=== PATIENT | female | born 1975 | race Asian ===

== ENCOUNTER 2018-09-26 05:13 | Inpatient (IN) | payer BC ==
--- NOTE | 2018-09-23 16:03 | NUR ---
[facility]:PEND F:[phone] REF#[id number]
[2018-09-26] VITALS (18 sets, daily range): BP systolic 116–161; BP diastolic 44–88
[~2018-09-26] VITALS: Ht 149.9 cm; Wt 41.8 kg
[2018-09-26] MEDS ORDERED: NKM (06:02)
[2018-09-26] MEDS ORDERED: Zemuron 50mg/5ml Inj IV ONE (06:40)
[2018-09-26] MEDS ORDERED: LR 1000ml 1,000 ML IVLG SCH (06:46)
[2018-09-26] MEDS ORDERED: Dexamethasone 4mg/ml vial ONE (06:49)
[2018-09-26] MEDS ORDERED: Lidocaine 1% MPF 10mg/ml 5ml ONE (06:49)
[2018-09-26] MEDS ORDERED: Sodium Chloride 10ml vial INJ ONE (06:49)
--- NOTE | 2018-09-26 06:49 | Anethesia Preoperative Eval ---
Anesthesia Pre-op PMH/ROS General Date of Evaluation: Sep 26, 2018 Anesthesiologist: Kathy ASA Score: ASA 1 Mallampati Score Class I : Soft palate, uvula, fauces, pillars visible Class II: Soft palate, uvula, fauces visible Class III: Soft palate, base of uvula visible Class IV: Only hard plate visible Mallampati Classification: Class I Surgeon: Jorge Diagnosis: Abd Pain Surgical Procedure: Abdominal Myomectomy Anesthesia History: none Family History: no anesthesia problems Allergies: Coded Allergies: No Known Allergies (Unverified , 09/23/18) Medications: see eMAR Patient NPO?: Yes NPO Date: Sep 25, 2018 NPO Time: 2029 Past Medical History Hematology/Immune: Reports: anemia PSxH Narrative: Uterine Ablation Anesthesia Pre-op Phys. Exam Physician Exam Last Vital Signs Date Time Temp Pulse Resp B/P (MAP) Pulse Ox O2 Delivery O2 Flow Rate FiO2 09/26/18 06:09 98.5 66 20 116/66 (83) 100 09/26/18 05:55 Room Air Constitutional: NAD Neurologic: CN 2-12 intact Cardiovascular: RRR Respiratory: CTA Gastrointestinal: S/NT/ND Airway Exam Mallampati Score: Class I MO: full ROM: full Teeth: intact Anesthesia Pre-op A/P Labs Urine Test Test 09/26/18 05:40 Urine HCG, Qualitative Negative (NEGATIVE) Risk Assessment & Plan Assessment: ASA 1 Plan: GA, SED, GlideScope Go Status Change Before Surgery: No Pre-Antibiotics Dru Gram Ancef IV Given Within 1 Hr of Incision: Yes Time Given: 07:46 Andre Chavez MD Sep 26, 2018 06:49
[2018-09-26] MEDS ORDERED: Ketamine 500mg Inj ONE (06:50)
[2018-09-26] MEDS ORDERED: Lidocaine 1% Plain 30 ml INJ ONE (06:57)
[2018-09-26] MEDS ORDERED: Ketorolac 30mg Inj IV PRN ×2 (07:00)
[2018-09-26] MEDS ORDERED: LORazepam Inj 2mg/ml 1ml IV PRN (07:00)
[2018-09-26] MEDS ORDERED: Norco 5mg/325mg tab ORAL PRN (07:00)
[2018-09-26] MEDS ORDERED: DiphenhydrAMINE 50mg/ml Inj IVP PRN (07:00)
[2018-09-26] MEDS ORDERED: Midazolam 2mg/2ml Inj IVP PRN (07:00)
[2018-09-26] MEDS ORDERED: HYDROcodone/Acetamin 7.5/325 tab ORAL PRN (07:00)
[2018-09-26] MEDS ORDERED: Atropine Sulfate 0.4mg/ml inj IVP PRN (07:00)
[2018-09-26] MEDS ORDERED: Acetaminophen (Non formulary) 100 ML IV ONE (07:00)
[2018-09-26] MEDS ORDERED: fentaNYL 100 mcg/2 mL IV PRN (07:00)
[2018-09-26] MEDS ORDERED: Hydromorphone 0.5mg/0.5ml inj IVP PRN (07:00)
[2018-09-26] MEDS ORDERED: oxyCODONE HCL/Acetaminophen 5/325mg ORAL PRN (07:00)
[2018-09-26] MEDS ORDERED: Metoclopramide 10mg/2ml Inj IVP PRN (07:00)
[2018-09-26] MEDS ORDERED: Meperidine 50mg/ml Inj(FOR RIGORS ONLY) IVP PRN (07:00)
[2018-09-26] MEDS ORDERED: Kenalog-40 1ml Vial ONE (07:21)
[2018-09-26] MEDS ORDERED: Bupivacaine w/Epi 0.25% 30ml Vial INJ ONE (07:21)
[2018-09-26] MEDS ORDERED: Propofol 1,000mg/ 100ml btl IV ONE (07:30)
[2018-09-26] MEDS ORDERED: Neostigmine 1mg/ml 10ml Inj ONE (07:30)
[2018-09-26] MEDS ORDERED: NS Irrig 1000ml ONE (07:30)
[2018-09-26] MEDS ORDERED: LR 1000ml ONE (07:30)
[2018-09-26] MEDS ORDERED: Sterile Water Irrig 1000ml IRRIG ONE (07:30)
--- NOTE | 2018-09-26 07:46 | Pre-Procedure Note/Attestation ---
Pre-Procedure Note/Attestation Complete Prior to Procedure Planned Procedure: not applicable Procedure Narrative: myomectomy, lysis of adhesions Indications for Procedure Pre-Operative Diagnosis: symptomatic myomata, pelvic adhesions Attestation I attest that I discussed the nature of the procedure; its benefits; risks and complications; and alternatives (and the risks and benefits of such alternatives ), prior to the procedure, with the patient (or the patient's legal retail representative). I attest that, if there was a reasonable possibility of needing a blood transfusion, the patient (or the patient's legal retail representative) was given the [facility] standardized written summary, pursuant to the Dru Elena Blood Safety Act ([place] Health and Safety Code # 1645, as amended). I attest that I re-evaluated the patient just prior to the surgery and that there has been no change in the patient's H&P, except as documented below: Bebo Patel MD Sep 26, 2018 07:46
--- NOTE | 2018-09-26 08:15 | Immediate Post-Op Evaluation ---
Immediate Post-Op Evalulation Immediate Post-Op Evalulation Procedure: Abdominal Myomectomy Date of Evaluation: Sep 26, 2018 Time of Evaluation: 09:33 IV Fluids: 700 LR Blood Products: 0 Estimated Blood Loss: 50 Urinary Output: 400 Blood Pressure Systolic: 126 Blood Pressure Diastolic: 44 Pulse Rate: 55 Respiratory Rate: 16 O2 Sat by Pulse Oximetry: 100 Temperature (Fahrenheit): 97.2 Pain Score (1-10): 2 Nausea: No Vomiting: No Complications 0 Patient Status: awake, reacts, patent, extubated, none Hydration Status: adequate Dru Gram Ancef IV Given Within 1 Hr of Incision: Yes Time Given: 07:46 Andre Chavez MD Sep 26, 2018 08:15
[2018-09-26] MEDS ORDERED: Interceed TOPIC ONE (08:52)
[2018-09-26] MEDS ORDERED: Glycopyrrolate 0.2mg/ml 1ml Vial ONE (08:55)
--- NOTE | 2018-09-26 08:59 | Brief Operative Note ---
Immediate Post Operative Note Operative Note Pre-op Diagnosis: fibroids leiomyoma of the uterus Procedure: 1. lysis of adhesions; adhesiolysis 2. repair of small bowel serosa Post-op Diagnosis: same as pre-op Surgeon: yumiko malloy Additional Surgeons: rebeca Anesthesiologist: cliff Anesthesia: general Specimen: none Complications: none Condition: stable Fluids: see records Estimated Blood Loss: minimal Drains: none Implant(s) used?: No Pepe Sanz Sep 26, 2018 08:59
--- NOTE | 2018-09-26 09:29 | Brief Operative Note ---
Immediate Post Operative Note Operative Note Pre-op Diagnosis: symptomatic myomata, pelvic adhesions Procedure: myomectomy, lysis Post-op Diagnosis: adenomyoma, adhesions Surgeon: gama Emblem Cutter: rebeca Additional Surgeons: shan Anesthesiologist: cliff Anesthesia: general Specimen: yes Complications: none Condition: stable Fluids: 2 liters crystalloid Estimated Blood Loss: minimal Drains: none Implant(s) used?: No Bebo Patel MD Sep 26, 2018 09:29
[2018-09-26] MEDS ORDERED: ceFAZolin sod 2 GM in D5W 110 ML IVPB ONE (10:00)
--- NOTE | 2018-09-26 10:50 | NUR ---
NURSE NOTES: RN received pt from [employer] Candie Giraldo, currently asleep with no complaints or s/s of pain, SOB, or n/v. On 3L NC, saturating at 100%, dressing dry and intact on lower abdomen (steri-strips and coverlet). Belongings with patient upon transfer, signed by receiving and transferring RN. Robledo catheter empty, will continue to monitor. Bed in lowest position, call light and belongings within reach.
[2018-09-26] MEDS ORDERED: Morphine Sulfate 4mg/ml Inj (IV/IM USE ONLY) IVP PRN ×2 (13:00)
[2018-09-26] MEDS: D5 1/2NS w/KCl 20mEq 1,000 ML IV SCH ×2 (13:55→23:37)
--- NOTE | 2018-09-26 15:54 | NUR ---
CASE MANAGEMENT: REVIEW 42/F DIRECT ADMIT FROM HOME CC: FIBROIDS SI: SYMPTOMATIC MYOMATA, PELVIC ADHESIONS ABDOMINAL MYOMECTOMY 09/26 T 98.1 HR 58 RR 14 BP 126/44 SAT 100% SIMPLE MASK FIO2 6 UA: HCG NEG IS: ZEMURON IV X1 MAG SULFATE IV X1 LACTATED RINGER'S IV X1 ANCEF IV X1 VASOPRESSIN IV X1 INTERQUAL CRITERIA MET: PATIENT ADMITTED TO MED/SURG UNIT 09/26/2017 DCP: PATIENT IS FROM HOME
[2018-09-26] MEDS: Docusate 100mg cap ORAL SCH (17:53)
[2018-09-26] MEDS: ceFAZolin 2gm/50ml Premix 50 ML IV SCH ×2 (17:54→23:37)
--- NOTE | 2018-09-26 19:54 | NUR ---
HAND-OFF: Report given to LUIS Stein.
--- NOTE | 2018-09-26 19:55 | NUR ---
NURSE NOTES: Patient in bed awake and oriented. VSS. Robledo catheter draining. Dressing slightly stained. Surgical pain 11/27. IV site intact and dry. Needs attended. Call light within reach. In stable condition.
[2018-09-27] VITALS: BP 123/72
--- NOTE | 2018-09-27 | Operative Note - Dictated ---
DATE OF OPERATION: 09/26/2018 SURGEON: Bebo Arechiga M.D. DIRECTOR PERIOPERATIVE SURGEON: Robert Redd M.D. PERFORATOR TYPIST: Pepe Sanz M.D. PREOPERATIVE DIAGNOSES: Symptomatic leiomyoma of the uterus and pelvic adhesions. POSTOPERATIVE DIAGNOSES: Adenomyoma of uterus and pelvic adhesions. ANESTHESIOLOGIST: Andre Chavez M.D. (general endotracheal). INDICATIONS AND FINDINGS: A 42-year-old female with imaging prior to surgery, suggestive of a leiomyoma of the uterus. The patient had undergone a successful uterine artery embolization in the past. At the time of her procedure, both ovaries and fallopian tubes were grossly normal. The pouch of Poncho could not be visualized because of organized bowel adhesions. These adhesions were lysed for possible by Dr. Sanz. It will be dictated as a separate note by him. The large adenomyoma was excised and the tissue was sent for frozen section, which confirmed adenomyoma. DESCRIPTION OF PROCEDURE: Under general anesthesia, the patient was prepped and draped and placed in the dorsal position. The abdomen was entered through a Pfannenstiel incision. We immediately encountered bowel adhesions as it has been seen on prior laparoscopy and Dr. Sanz performed lysis of adhesions as described in the operative note. Next, the resection of the intramural leiomyoma. The patient's adenomyoma was encountered as was revealed on frozen section. The serosa was injected with dilute Pitressin (20 units in 50 mL of saline) was excised. The adenoma myoma was encountered and morcellated. Significant amount of tissue was removed. The uterus was then inspected and the patient will require a section when she becomes . The uterus was then closed in 3 layers using interrupted sutures of 1 chromic. Interceed barrier was placed over the suture line. The abdomen was copiously irrigated. No bleeding points were seen. The patient was anemic prior to surgery and will be given intravenous iron. The patient's abdominal incision was then closed with a running suture. Fascia was closed with running and locking #1 Vicryl. Subcutaneous tissue closed with 3-0 plain and the patient's skin was closed with skin clips and Steri-Strips. The patient tolerated the procedure and left the operating room in stable condition. Bebo Tcao Arechiga DR: HIPOLITO JOB#: [id number] CC: SARAH
[2018-09-27] MEDS: Morphine Sulfate 4mg/ml Inj (IV/IM USE ONLY) IVP PRN ×5 (00:29→19:46)
[2018-09-27 04:00] VITALS: BP 119/74
--- NOTE | 2018-09-27 07:22 | 48 Hour Post Anesthesia Eval ---
Post Anesthesia Evaluation Procedure: Abdominal Myomectomy Date of Evaluation: Sep 27, 2018 Time of Evaluation: 07:20 Blood Pressure Systolic: 119 0: 74 Pulse Rate: 81 Respiratory Rate: 19 Temperature (Fahrenheit): 97.2 O2 Sat by Pulse Oximetry: 99 Airway: patent Nausea: No Vomiting: No Pain Intensity: 2 Hydration Status: adequate Cardiopulmonary Status: Stable Mental Status/LOC: patient returned to baseline Follow-up Care/Observations: 0 Post-Anesthesia Complications: 0 Follow-up care needed: N/A Andre Chavez MD Sep 27, 2018 07:22
[2018-09-27 07:29] LABS: HEMATOCRIT 22.6 % (37.0-47.0); MEAN CORPUSCULAR VOLUME 64 FL (80-99); PLATELET COUNT 408 K/UL (150-450); RED BLOOD COUNT 3.53 M/UL (4.20-5.40); RED CELL DISTRIBUTION WIDTH 17.6 % (11.6-14.8); WHITE BLOOD COUNT 9.6 K/UL (4.8-10.8)
[2018-09-27 07:32] LABS: HEMOGLOBIN 6.7 G/DL (12.0-16.0)
[2018-09-27 07:51] LABS: ALANINE AMINOTRANSFERASE 16 U/L (12-78); ALBUMIN 2.7 G/DL (3.4-5.0); ALBUMIN/GLOBULIN RATIO 0.7 (1.0-2.7); ALKALINE PHOSPHATASE 58 U/L (46-116); ANION GAP 7 mmol/L (5-15); ASPARTATE AMINO TRANSFERASE 19 U/L (15-37); BILIRUBIN,TOTAL 0.3 MG/DL (0.2-1.0); BLOOD UREA NITROGEN 5 mg/dL (7-18); CALCIUM 7.7 MG/DL (8.5-10.1); CARBON DIOXIDE 26 MMOL/L (21-32); CHLORIDE 105 MMOL/L (98-107); CREATININE 0.6 MG/DL (0.55-1.30); POTASSIUM 3.6 MMOL/L (3.5-5.1); SODIUM 138 MMOL/L (136-145)
[2018-09-27 08:00] VITALS: BP 140/105
--- NOTE | 2018-09-27 08:00 | NUR ---
NURSE NOTES: RN notified Dr. Patel of Hgb of 6.7, doctor ordered 2 units of PRBCs to be administered.
--- NOTE | 2018-09-27 08:17 | NUR ---
NURSE NOTES: NURSE NOTES: Received patient from Emil SMITH, patient is resting bed comfortable, bed is locked and in lowest position, will continue to monitor.
--- NOTE | 2018-09-27 08:30 | NUR ---
NURSE NOTES: RN discussed blood transfusion with patient and patient is refusing ordered blood, RN made MD aware and MD ordered retest of CBC.
[2018-09-27] MEDS: Docusate 100mg cap ORAL SCH ×2 (08:46→17:36)
--- NOTE | 2018-09-27 10:00 | NUR ---
NURSE NOTES: MD made aware of retest CBC and patient continuing to refuse blood transfusion, MD ordered venofer daily for 5 days, no distress noted, will continue to monitor.
[2018-09-27] MEDS: D5 1/2NS w/KCl 20mEq 1,000 ML IV SCH ×2 (10:04→12:20)
[2018-09-27 10:34] LABS: HEMATOCRIT 22.6 % (37.0-47.0); MEAN CORPUSCULAR VOLUME 64 FL (80-99); PLATELET COUNT 408 K/UL (150-450); RED BLOOD COUNT 3.51 M/UL (4.20-5.40); RED CELL DISTRIBUTION WIDTH 17.7 % (11.6-14.8); WHITE BLOOD COUNT 9.1 K/UL (4.8-10.8)
[2018-09-27 10:41] LABS: HEMOGLOBIN 6.8 G/DL (12.0-16.0)
--- NOTE | 2018-09-27 11:52 | Consultation ---
Consult Note Assessment/Plan Internal Med notes dict Chele Tijerina MD Sep 27, 2018 11:52
[2018-09-27 12:00] VITALS: BP 128/68
--- NOTE | 2018-09-27 13:10 | General Surgery Progress Note ---
General Surgery-Progress Note Subjective Day of Surgery: september 26 Procedure Performed myomectomy, lysis Symptoms: improved, tolerating diet, voiding well Objective Last 24 Hour Vital Signs Date Time Temp Pulse Resp B/P (MAP) Pulse Ox O2 Delivery O2 Flow Rate FiO2 09/27/18 12:00 98.3 80 18 128/68 (88) 98 09/27/18 10:00 97.9 09/27/18 08:00 Room Air 09/27/18 08:00 97.9 72 19 140/105 (117) 100 09/27/18 07:22 81 19 99 09/27/18 04:00 97.2 81 19 119/74 (89) 99 09/27/18 00:00 98.1 84 18 123/72 (89) 98 09/26/18 21:00 Room Air 09/26/18 20:00 98.4 71 18 139/76 (97) 98 09/26/18 16:00 98.2 68 20 134/78 (96) 100 09/26/18 13:35 98.1 73 20 138/80 (99) 100 I&O Intake and Output 09/26/18 09/27/18 19:00 07:00 Intake Total 1620 ml 1400 ml Output Total 450 ml 1200 ml Balance 1170 ml 200 ml Intake Oral 220 ml 300 ml IV Total 1400 ml 1100 ml Output Urine Total 400 ml 1200 ml Estimated Blood Loss 50 ml Dressing: dry Wound: clean Drains: none Cardiovascular: RSR Respiratory: clear Abdomen: soft, flat, scaphoid, tenderness, present bowel sounds Laboratory Tests Test 09/26/18 20:15 09/27/18 06:45 09/27/18 10:27 Thyroid Stimulating Hormone (TSH) 0.420 uiU/mL (0.358-3.740) Free Thyroxine 1.05 NG/DL (0.76-1.46) White Blood Count 9.6 K/UL (4.8-10.8) 9.1 K/UL (4.8-10.8) Red Blood Count 3.53 M/UL (4.20-5.40) L 3.51 M/UL (4.20-5.40) L Hemoglobin 6.7 G/DL (12.0-16.0) *L 6.8 G/DL (12.0-16.0) *L Hematocrit 22.6 % (37.0-47.0) L 22.6 % (37.0-47.0) L Mean Corpuscular Volume 64 FL (80-99) L 64 FL (80-99) L Mean Corpuscular Hemoglobin 19.1 PG (27.0-31.0) L 19.3 PG (27.0-31.0) L Mean Corpuscular Hemoglobin Concent 29.9 G/DL (32.0-36.0) L 30.1 G/DL (32.0-36.0) L Red Cell Distribution Width 17.6 % (11.6-14.8) H 17.7 % (11.6-14.8) H Platelet Count 408 K/UL (150-450) 408 K/UL (150-450) Mean Platelet Volume 5.1 FL (6.5-10.1) L 5.8 FL (6.5-10.1) L Neutrophils (%) (Auto) % (45.0-75.0) % (45.0-75.0) Lymphocytes (%) (Auto) % (20.0-45.0) % (20.0-45.0) Monocytes (%) (Auto) % (1.0-10.0) % (1.0-10.0) Eosinophils (%) (Auto) % (0.0-3.0) % (0.0-3.0) Basophils (%) (Auto) % (0.0-2.0) % (0.0-2.0) Differential Total Cells Counted 100 100 Neutrophils % (Manual) 75 % (45-75) 79 % (45-75) H Lymphocytes % (Manual) 18 % (20-45) L 16 % (20-45) L Monocytes % (Manual) 7 % (1-10) 5 % (1-10) Eosinophils % (Manual) 0 % (0-3) 0 % (0-3) Basophils % (Manual) 0 % (0-2) 0 % (0-2) Band Neutrophils 0 % (0-8) 0 % (0-8) Platelet Estimate Adequate Adequate Platelet Morphology Normal Normal Hypochromasia 4+ 4+ Anisocytosis 1+ 1+ Microcytosis 4+ 4+ Sodium Level 138 MMOL/L (136-145) Potassium Level 3.6 MMOL/L (3.5-5.1) Chloride Level 105 MMOL/L (98-107) Carbon Dioxide Level 26 MMOL/L (21-32) Anion Gap 7 mmol/L (5-15) Blood Urea Nitrogen 5 mg/dL (7-18) L Creatinine 0.6 MG/DL (0.55-1.30) Estimat Glomerular Filtration Rate > 60 mL/min (>60) Glucose Level 113 MG/DL (74-106) H Calcium Level 7.7 MG/DL (8.5-10.1) L Total Bilirubin 0.3 MG/DL (0.2-1.0) Aspartate Amino Transf (AST/SGOT) 19 U/L (15-37) Alanine Aminotransferase (ALT/SGPT) 16 U/L (12-78) Alkaline Phosphatase 58 U/L (46-116) Total Protein 6.8 G/DL (6.4-8.2) Albumin 2.7 G/DL (3.4-5.0) L Globulin 4.1 g/dL Albumin/Globulin Ratio 0.7 (1.0-2.7) L Additional Comments patient refused transfusion, risks discussed at length Assessment Post-op Diagnosis adenomyoma, adhesions Additional Comments iv iron, ambulate Bebo Patel MD Sep 27, 2018 13:10
[2018-09-27] MEDS ORDERED: Iron Sucrose 100 MG in NS 55 ML IV SCH (14:00)
--- NOTE | 2018-09-27 14:00 | NUR ---
PT EVALUATION NOTE: Patient seen for initial evaluation, see complete evaluation for details. Patient will benefit from skilled inpatient PT intervention to address strength, balance, safety awareness and functional mobility. Recommend home at MD. No DME needs anticipated. Addendum: 09/27/18 at 1543 by THOMAS MADRIGAL PT Amended: Links added.
--- NOTE | 2018-09-27 15:22 | NUR ---
NURSE NOTES: RN notified Dr. Patel that patient had blood clots in her blood, doctor noted that the blood was from the uterus and no blood previously seen when lee was in, will continue to monitor and no new orders at this time.
--- NOTE | 2018-09-27 15:45 | Consultation ---
DATE OF CONSULTATION: 09/27/2018 CHIEF COMPLAINT: Request for postoperative management. HISTORY OF PRESENT ILLNESS: The patient is 42-year-old woman who came to the hospital for myomectomy, which was performed yesterday. She has had symptomatic fibroids of the uterus and pelvic adhesions for a long time and reports heavy menstrual bleeding. She had a previous uterine artery embolization. She underwent resection of adenomyoma yesterday and following surgery has been anemic. She has refused blood transfusion despite advice that this increases her risk of postoperative complications. PAST MEDICAL HISTORY: Leiomyoma uteri, anemia. ALLERGIES: None. MEDICATIONS: None. REVIEW OF SYSTEMS: She reports that she might have a thyroid problem in the past. She also reports occasional dyspnea with exertion. SOCIAL HISTORY: She does not drink or smoke and does not use illicit drugs. She works in a [employer]. PHYSICAL EXAMINATION: VITAL SIGNS: Blood pressure is somewhat elevated at times. GENERAL: She is a thin woman who appears to be her stated age. HEENT: Head is normocephalic. NECK: No jugular venous distention. The thyroid is not enlarged. CHEST: Clear. CARDIAC: Rhythm is regular. ABDOMEN: Soft with surgical tenderness. EXTREMITIES: No clubbing, cyanosis, or edema. LABORATORY AND DIAGNOSTIC DATA: Laboratory studies showed hemoglobin is 6.8, hematocrit 22, white count 9100, and platelets are normal. The red cells are microcytic. Chemistry shows normal electrolytes. Blood sugar slightly elevated at 113. Calcium low at 7.7, albumin low at 2.7. Urine is negative for HCG. Thyroid studies are normal. IMPRESSIONS: 1. Postoperative myomectomy. 2. Anemia, likely due to excessive blood loss from heavy menses and from surgery. 3. Mild malnutrition. PLAN: The patient will be given intravenous iron. We will continue with pain management and postoperative care. She will be discharged home if her condition permits. Chele Tijerina M.D. DR: Carlos JOB#: [id number] CC: Chele Tijerina M.D.; Fax#: [phone] GOPI PARKER M.D. ; FAX#: [phone] [facility]
[2018-09-27 16:00] VITALS: BP 136/75
--- NOTE | 2018-09-27 16:00 | Operative Note - Dictated ---
DATE OF OPERATION: 09/26/2018 PREOPERATIVE DIAGNOSES: 1. Fibroid/leiomyoma of the uterus. 2. Significant bowel adhesions. POSTOPERATIVE DIAGNOSES: 1. Fibroid/leiomyoma of the uterus. 2. Significant bowel adhesions. OPERATION PERFORMED: 1. Lysis of adhesions/adhesiolysis. 2. Repair of small bowel serosal tear. ATTENDING SURGEON: Pepe Sanz M.D. ADDITIONAL SURGEONS: Bebo Patel M.D. with assisting surgeon, Dr. Redd. ANESTHESIOLOGIST: Dr. Andre Chavez. 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 ESTIMATED BLOOD LOSS: Minimal. IV FLUIDS: Please see anesthesia records. COMPLICATIONS: None. DRAINS: None. SPECIMENS: Please refer to Dr. Patel' note. IMPLANTS: None. INDICATIONS FOR PROCEDURE: This is a 42-year-old female scheduled for surgery with Dr. Bebo Paetl for fibroids and leiomyoma of the uterus requiring a biopsy and potential resection. During operation, the patient was noted to have significant adhesions of small bowel to the uterus and fibroid requiring adhesiolysis/lysis adhesions. Dr. Sanz from General Surgery was called to assist with the procedure and the adhesiolysis portion so that the MEAT LUGGER portion could be completed in full. OPERATIVE NOTE: Please refer to Dr. Bebo Patel' operative report for the beginning of the procedure. Once they had entered the abdomen, there were Pfannenstiel incision. The fibroid/leiomyoma/uterus were identified. There were significant small bowel adhesions to the fibroid and the fibroid/leiomyoma/uterus requiring adhesiolysis for proper evaluation and biopsy. At this portion of procedure, using blunt dissection and Metzenbaum scissors, the portions of the small bowel, which appeared to be jejunum that were densely adhesed to the fibroid, were released. Minimal to no electrocautery was used only for simple hemostasis. Upon completion of lysis of adhesions, there was one small less than 1 cm serosal tear identified, which was repaired with two 3-0 silk pop-off sutures. Once this was completed, the bowel was evaluated and noted to be otherwise healthy and no longer adherent to the area/surgical site of Dr. Patel. At this time, my portion of procedure concluded. Please refer Dr. Patel' remaining operative note for details of the end of the procedure. Pepe Sanz M.D. DR: FREDA JOB#: [id number] CC:
--- NOTE | 2018-09-27 16:48 | NUR ---
INSURANCE CLINICALS AND REVIEWS FAXED TO: [facility] [place]:PEND F:[phone] REF#[id number]
--- NOTE | 2018-09-27 19:42 | NUR ---
HAND-OFF: Report given to Emil SMITH.
--- NOTE | 2018-09-27 19:52 | NUR ---
NURSE NOTES: Patient in bed awake and oriented. No bleeding noted at this time. VSS. 7/10 abdominal pain. PRN pain meds given. Tolerated well. IV fluids running. Bowel sounds hypoactive. Encouraged to ambulate and use IS. Needs attended. Due meds given. In stable condition.
[2018-09-27 20:00] VITALS: BP 143/70
[2018-09-28] VITALS: BP 132/74
[2018-09-28] MEDS: Morphine Sulfate 4mg/ml Inj (IV/IM USE ONLY) IVP PRN (01:45)
[2018-09-28 04:00] VITALS: BP 124/69
[2018-09-28 06:27] LABS: HEMATOCRIT 22.2 % (37.0-47.0); MEAN CORPUSCULAR VOLUME 65 FL (80-99); PLATELET COUNT 360 K/UL (150-450); RED BLOOD COUNT 3.42 M/UL (4.20-5.40); RED CELL DISTRIBUTION WIDTH 16.8 % (11.6-14.8); WHITE BLOOD COUNT 11.1 K/UL (4.8-10.8)
[2018-09-28 06:52] LABS: HEMOGLOBIN 6.5 G/DL (12.0-16.0)
[2018-09-28 06:57] LABS: ANION GAP 6 mmol/L (5-15); BLOOD UREA NITROGEN 4 mg/dL (7-18); CALCIUM 8.5 MG/DL (8.5-10.1); CARBON DIOXIDE 28 MMOL/L (21-32); CHLORIDE 102 MMOL/L (98-107); CREATININE 0.5 MG/DL (0.55-1.30); POTASSIUM 3.6 MMOL/L (3.5-5.1); SODIUM 136 MMOL/L (136-145)
[2018-09-28 08:00] VITALS: BP 136/76
[2018-09-28] MEDS: D5 1/2NS w/KCl 20mEq 1,000 ML IV SCH ×2 (08:20→13:25)
--- NOTE | 2018-09-28 08:28 | NUR ---
NURSE NOTES: Received patient on bed, awake. IV site intact and patent. Bed in low and locked position, call light within reach. No signs of respiratory distress, patient denies pain. Room board updated, will continue to monitor.
[2018-09-28] MEDS: Docusate 100mg cap ORAL SCH ×2 (09:35→18:14)
[2018-09-28] MEDS ORDERED: Morphine Sulfate 4mg/ml Inj (IV/IM USE ONLY) IVP PRN (10:30)
[2018-09-28] MEDS ORDERED: Tylenol #3 tab (300mg/30mg) ORAL PRN (10:30)
--- NOTE | 2018-09-28 10:50 | NUR ---
NURSE NOTES: PRBC transfusion started. Vitals stable.
--- NOTE | 2018-09-28 11:05 | NUR ---
NURSE NOTES: Vitals stable after intial 15 minutes of transfusion. Increased rate to 125mL/hour.
--- NOTE | 2018-09-28 11:53 | NUR ---
NURSE NOTES: Patient had small amount of blood discharged from vaginal area. No clots seen. Message left for MD and charge nurse made aware. Addendum: 09/28/18 at 1155 by SHERLYN BERMAN RN RN color was a darker red with no clots seen.
[2018-09-28 12:00] VITALS: BP 129/81
--- NOTE | 2018-09-28 12:36 | General Progress Note ---
Assessment/Plan Assessment/Plan 1. Postoperative myomectomy. 2. Anemia, likely due to excessive blood loss from heavy menses and from surgery. 3. Mild malnutrition. agreed to transfusion, Hgb 6.5 continue post op care disc w RN, Dr Patel Subjective Constitutional: Reports: weakness Respiratory: Reports: SOB with excertion Gastrointestinal/Abdominal: Reports: abdominal pain Allergies: Coded Allergies: No Known Allergies (Unverified , 09/23/18) Objective Last 24 Hour Vital Signs Date Time Temp Pulse Resp B/P (MAP) Pulse Ox O2 Delivery O2 Flow Rate FiO2 09/28/18 12:00 99.7 97 19 129/81 (97) 100 09/28/18 09:00 Room Air 09/28/18 08:00 99.0 94 20 136/76 (96) 99 09/28/18 04:00 97.4 88 18 124/69 (87) 99 09/28/18 00:00 98.2 86 18 132/74 (93) 98 09/27/18 21:00 Room Air 09/27/18 20:00 98.1 87 18 143/70 (94) 97 09/27/18 16:00 98.6 86 18 136/75 (95) 98 09/27/18 15:17 98.3 Intake and Output 09/27/18 09/28/18 18:59 06:59 Intake Total 400 ml Output Total 650 ml Balance -650 ml 400 ml Intake Oral 400 ml Output Urine Total 650 ml # Voids 3 3 Laboratory Tests 09/28/18 05:55: White Blood Count 11.1H, Red Blood Count 3.42L, Hemoglobin 6.5*L, Hematocrit 22.2L, Mean Corpuscular Volume 65L, Mean Corpuscular Hemoglobin 19.1L, Mean Corpuscular Hemoglobin Concent 29.5L, Red Cell Distribution Width 16.8H, Platelet Count 360, Mean Platelet Volume 4.9L, Neutrophils (%) (Auto) , Lymphocytes (%) (Auto) , Monocytes (%) (Auto) , Eosinophils (%) (Auto) , Basophils (%) (Auto) , Differential Total Cells Counted 100, Neutrophils % ( Manual) 81H, Lymphocytes % (Manual) 14L, Monocytes % (Manual) 3, Eosinophils % ( Manual) 0, Basophils % (Manual) 1, Band Neutrophils 1, Platelet Estimate Adequate, Platelet Morphology Normal, Hypochromasia 3+, Anisocytosis 1+, Microcytosis 3+, Sodium Level 136, Potassium Level 3.6, Chloride Level 102, Carbon Dioxide Level 28, Anion Gap 6, Blood Urea Nitrogen 4L, Creatinine 0.5L, Estimat Glomerular Filtration Rate > 60, Glucose Level 110H, Calcium Level 8.5 Height (Feet): 4 Height (Inches): 11.00 Weight (Pounds): 92 General Appearance: no apparent distress Neck: supple Cardiovascular: normal rate Respiratory/Chest: lungs clear Chele Tijerina MD Sep 28, 2018 12:36
[2018-09-28] MEDS: Tylenol #3 tab (300mg/30mg) ORAL PRN ×2 (13:05→20:09)
--- NOTE | 2018-09-28 13:30 | NUR ---
NURSE NOTES: MD Sanz aware of patient bleeding. No new orders.
--- NOTE | 2018-09-28 13:51 | General Surgery Progress Note ---
General Surgery-Progress Note Subjective Procedure Performed 1. lysis of adhesions; adhesiolysis 2. repair of small bowel serosa Additional Comments low grade fever. mild leukocytosis 11k. abd pain same. tolerating clears. no flatus or BM yet. ambulatory. Objective Last 24 Hour Vital Signs Date Time Temp Pulse Resp B/P (MAP) Pulse Ox O2 Delivery O2 Flow Rate FiO2 09/28/18 12:00 99.7 97 19 129/81 (97) 100 09/28/18 09:00 Room Air 09/28/18 08:00 99.0 94 20 136/76 (96) 99 09/28/18 04:00 97.4 88 18 124/69 (87) 99 09/28/18 00:00 98.2 86 18 132/74 (93) 98 09/27/18 21:00 Room Air 09/27/18 20:00 98.1 87 18 143/70 (94) 97 09/27/18 16:00 98.6 86 18 136/75 (95) 98 09/27/18 15:17 98.3 I&O Intake and Output 09/27/18 09/28/18 18:59 06:59 Intake Total 400 ml Output Total 650 ml Balance -650 ml 400 ml Intake Oral 400 ml Output Urine Total 650 ml # Voids 3 3 Wound: clean, intact Drains: none Cardiovascular: RSR Respiratory: clear Abdomen: soft, flat, tenderness, present bowel sounds Extremities: no edema, no tenderness, no cyanosis Laboratory Tests Test 09/28/18 05:55 White Blood Count 11.1 K/UL (4.8-10.8) H Red Blood Count 3.42 M/UL (4.20-5.40) L Hemoglobin 6.5 G/DL (12.0-16.0) *L Hematocrit 22.2 % (37.0-47.0) L Mean Corpuscular Volume 65 FL (80-99) L Mean Corpuscular Hemoglobin 19.1 PG (27.0-31.0) L Mean Corpuscular Hemoglobin Concent 29.5 G/DL (32.0-36.0) L Red Cell Distribution Width 16.8 % (11.6-14.8) H Platelet Count 360 K/UL (150-450) Mean Platelet Volume 4.9 FL (6.5-10.1) L Neutrophils (%) (Auto) % (45.0-75.0) Lymphocytes (%) (Auto) % (20.0-45.0) Monocytes (%) (Auto) % (1.0-10.0) Eosinophils (%) (Auto) % (0.0-3.0) Basophils (%) (Auto) % (0.0-2.0) Differential Total Cells Counted 100 Neutrophils % (Manual) 81 % (45-75) H Lymphocytes % (Manual) 14 % (20-45) L Monocytes % (Manual) 3 % (1-10) Eosinophils % (Manual) 0 % (0-3) Basophils % (Manual) 1 % (0-2) Band Neutrophils 1 % (0-8) Platelet Estimate Adequate Platelet Morphology Normal Hypochromasia 3+ Anisocytosis 1+ Microcytosis 3+ Sodium Level 136 MMOL/L (136-145) Potassium Level 3.6 MMOL/L (3.5-5.1) Chloride Level 102 MMOL/L (98-107) Carbon Dioxide Level 28 MMOL/L (21-32) Anion Gap 6 mmol/L (5-15) Blood Urea Nitrogen 4 mg/dL (7-18) L Creatinine 0.5 MG/DL (0.55-1.30) L Estimat Glomerular Filtration Rate > 60 mL/min (>60) Glucose Level 110 MG/DL (74-106) H Calcium Level 8.5 MG/DL (8.5-10.1) Plan Additional Comments keep on clears cont abx path noted ambulate and out of bed encourage Incentive spirometry Pepe Sanz Sep 28, 2018 13:50
[2018-09-28] MEDS ORDERED: Piperacillin/Tazobactam 3.375 GM in NS 110 ML IVPB SCH (14:00)
--- NOTE | 2018-09-28 14:40 | NUR ---
NURSE NOTES: Started 2nd unit of PRBC. Vitals stable.
--- NOTE | 2018-09-28 14:56 | NUR ---
NURSE NOTES: No reaction observed, rate increased to 125/hour.
--- NOTE | 2018-09-28 15:24 | NUR ---
NURSE NOTES: Scheduled 1400 zosyn held due to blood transfusion. Pharmacy made aware will contact after transfusion is complete.
[2018-09-28 16:00] VITALS: BP 131/68
--- NOTE | 2018-09-28 17:45 | NUR ---
NURSE NOTES: Second unit of PRBC transfused. Vitals stable, no reaction noted.
[2018-09-28] MEDS: Piperacillin/Tazobactam 3.375 GM in NS 110 ML IVPB SCH ×2 (18:14→23:22)
--- NOTE | 2018-09-28 19:30 | NUR ---
NURSE NOTES: Received report from Naeem SMITH. Pt A&O x 4 laying semi-fowlers in bed. Pt vital signs stable. IV right hand 18g dry & intact. Pt c/o 5/10 pain in abdomen. Surgical dressing C/D/I. Call light in reach, bed in lowest position, side rails up x2. Will continue to monitor pt.
--- NOTE | 2018-09-28 19:30 | NUR ---
HAND-OFF: Report given to LUIS Esqueda.
[2018-09-28 20:00] VITALS: BP 118/73
[2018-09-28 20:40] LABS: BASOPHILS % (AUTO) 0.5 % (0.0-2.0); EOSINOPHILS % (AUTO) 0.6 % (0.0-3.0); HEMATOCRIT 31.9 % (37.0-47.0); LYMPHOCYTES % (AUTO) 15.7 % (20.0-45.0); MEAN CORPUSCULAR VOLUME 72 FL (80-99); MONOCYTES % (AUTO) 8.8 % (1.0-10.0); NEUTROPHILS % (AUTO) 74.4 % (45.0-75.0); PLATELET COUNT 335 K/UL (150-450); RED BLOOD COUNT 4.45 M/UL (4.20-5.40); RED CELL DISTRIBUTION WIDTH 21.4 % (11.6-14.8); WHITE BLOOD COUNT 9.9 K/UL (4.8-10.8)
[2018-09-28] MEDS ORDERED: Iron Sucrose 100 MG in NS 55 ML IV SCH (21:00)
[2018-09-29] VITALS: BP 105/68
[2018-09-29 04:00] VITALS: BP 119/70
[2018-09-29] MEDS: D5 1/2NS w/KCl 20mEq 1,000 ML IV SCH (04:20)
[2018-09-29] MEDS: Tylenol #3 tab (300mg/30mg) ORAL PRN ×2 (04:55→17:14)
[2018-09-29] MEDS: Piperacillin/Tazobactam 3.375 GM in NS 110 ML IVPB SCH ×2 (04:56→14:16)
--- NOTE | 2018-09-29 06:15 | NUR ---
NURSE NOTES: Per pt able to pass gas. Bowel sounds present. No pain noted.
[2018-09-29 07:33] LABS: BASOPHILS % (AUTO) 0.9 % (0.0-2.0); EOSINOPHILS % (AUTO) 0.9 % (0.0-3.0); HEMATOCRIT 30.8 % (37.0-47.0); HEMOGLOBIN 9.9 G/DL (12.0-16.0); LYMPHOCYTES % (AUTO) 12.4 % (20.0-45.0); MEAN CORPUSCULAR VOLUME 72 FL (80-99); MONOCYTES % (AUTO) 5.1 % (1.0-10.0); NEUTROPHILS % (AUTO) 80.6 % (45.0-75.0); PLATELET COUNT 329 K/UL (150-450); RED BLOOD COUNT 4.28 M/UL (4.20-5.40); RED CELL DISTRIBUTION WIDTH 21.2 % (11.6-14.8); WHITE BLOOD COUNT 9.2 K/UL (4.8-10.8)
--- NOTE | 2018-09-29 07:36 | NUR ---
HAND-OFF: Report given to Brittani SMITH. Pt is stable.
--- NOTE | 2018-09-29 07:46 | NUR ---
NURSE NOTES: Pt in bed a/o x 4 in bed in no acute distress. Patent IV to right hand running fluids as ordered. Pt denies pain, given pain medication this am. Abd dressing in place. Pt left in bed in low position, call light within reach.
[2018-09-29 07:53] LABS: ANION GAP 9 mmol/L (5-15); BLOOD UREA NITROGEN 6 mg/dL (7-18); CALCIUM 8.6 MG/DL (8.5-10.1); CARBON DIOXIDE 28 MMOL/L (21-32); CHLORIDE 101 MMOL/L (98-107); CREATININE 0.5 MG/DL (0.55-1.30); POTASSIUM 3.2 MMOL/L (3.5-5.1); SODIUM 138 MMOL/L (136-145)
[2018-09-29 08:00] VITALS: BP 135/82
[2018-09-29] MEDS: Docusate 100mg cap ORAL SCH ×2 (08:00→17:13)
[2018-09-29] MEDS ORDERED: ACETAMINOPHEN-1 EAC1 ORAL (10:52)
--- NOTE | 2018-09-29 11:30 | NUR ---
Late entry: Contacted Dr. Tijerina and notified of 3.[address] Tijerina orders KCL 40 meq. Please refer to orders in [facility].
[2018-09-29 12:06] VITALS: BP 139/81
--- NOTE | 2018-09-29 14:00 | General Surgery Progress Note ---
General Surgery-Progress Note Subjective Procedure Performed myomectomy, lysis Symptoms: improved, tolerating diet, voiding well, passing flatus Objective Last 24 Hour Vital Signs Date Time Temp Pulse Resp B/P (MAP) Pulse Ox O2 Delivery O2 Flow Rate FiO2 09/29/18 12:06 98.3 76 18 139/81 (100) 99 09/29/18 09:00 Room Air 09/29/18 08:00 98.4 84 18 135/82 (99) 98 09/29/18 05:25 98.1 09/29/18 04:00 98.1 76 17 119/70 (86) 97 09/29/18 00:00 98.3 78 17 105/68 (80) 96 09/28/18 21:00 Room Air 09/28/18 20:00 99.0 82 18 118/73 (88) 97 09/28/18 16:00 97.6 86 19 131/68 (89) 95 I&O Intake and Output 09/28/18 09/29/18 18:59 06:59 Intake Total 1050 ml 720 ml Balance 1050 ml 720 ml Intake Oral 1000 ml 520 ml IV Total 50 ml 200 ml # Voids 2 Dressing: dry Wound: clean Drains: none Cardiovascular: RSR Respiratory: clear Abdomen: soft, flat, scaphoid, non-tender, present bowel sounds Extremities: no edema, no tenderness, no cyanosis Laboratory Tests Test 09/28/18 20:05 09/29/18 06:30 White Blood Count 9.9 K/UL (4.8-10.8) 9.2 K/UL (4.8-10.8) Red Blood Count 4.45 M/UL (4.20-5.40) 4.28 M/UL (4.20-5.40) Hemoglobin 10.0 G/DL (12.0-16.0) #L 9.9 G/DL (12.0-16.0) L Hematocrit 31.9 % (37.0-47.0) #L 30.8 % (37.0-47.0) L Mean Corpuscular Volume 72 FL (80-99) #L 72 FL (80-99) L Mean Corpuscular Hemoglobin 22.5 PG (27.0-31.0) L 23.1 PG (27.0-31.0) L Mean Corpuscular Hemoglobin Concent 31.4 G/DL (32.0-36.0) L 32.0 G/DL (32.0-36.0) Red Cell Distribution Width 21.4 % (11.6-14.8) H 21.2 % (11.6-14.8) H Platelet Count 335 K/UL (150-450) 329 K/UL (150-450) Mean Platelet Volume 5.8 FL (6.5-10.1) L 5.8 FL (6.5-10.1) L Neutrophils (%) (Auto) 74.4 % (45.0-75.0) 80.6 % (45.0-75.0) H Lymphocytes (%) (Auto) 15.7 % (20.0-45.0) L 12.4 % (20.0-45.0) L Monocytes (%) (Auto) 8.8 % (1.0-10.0) 5.1 % (1.0-10.0) Eosinophils (%) (Auto) 0.6 % (0.0-3.0) 0.9 % (0.0-3.0) Basophils (%) (Auto) 0.5 % (0.0-2.0) 0.9 % (0.0-2.0) Sodium Level 138 MMOL/L (136-145) Potassium Level 3.2 MMOL/L (3.5-5.1) L Chloride Level 101 MMOL/L (98-107) Carbon Dioxide Level 28 MMOL/L (21-32) Anion Gap 9 mmol/L (5-15) Blood Urea Nitrogen 6 mg/dL (7-18) L Creatinine 0.5 MG/DL (0.55-1.30) L Estimat Glomerular Filtration Rate > 60 mL/min (>60) Glucose Level 88 MG/DL (74-106) Calcium Level 8.6 MG/DL (8.5-10.1) Assessment Post-op Diagnosis adenomyoma, adhesions Plan Additional Comments tolerating diet, passing flatus, pain controlled by tylenol # 3. ok to discharge , FU 1 week my office for clip removal. Bebo Patel MD Sep 29, 2018 14:00
[2018-09-29 16:00] VITALS: BP 131/77
--- NOTE | 2018-09-29 16:24 | General Progress Note ---
Assessment/Plan Assessment/Plan 1. Postoperative myomectomy. 2. Anemia, due to excessive blood loss from heavy menses and from surgery. 3. Mild malnutrition. post transfusion, Hgb 10 discharge home disc w RN, Dr Patel Subjective Constitutional: Reports: no symptoms Respiratory: Denies: shortness of breath Allergies: Coded Allergies: No Known Allergies (Unverified , 09/23/18) Objective Last 24 Hour Vital Signs Date Time Temp Pulse Resp B/P (MAP) Pulse Ox O2 Delivery O2 Flow Rate FiO2 09/29/18 12:06 98.3 76 18 139/81 (100) 99 09/29/18 09:00 Room Air 09/29/18 08:00 98.4 84 18 135/82 (99) 98 09/29/18 05:25 98.1 09/29/18 04:00 98.1 76 17 119/70 (86) 97 09/29/18 00:00 98.3 78 17 105/68 (80) 96 09/28/18 21:00 Room Air 09/28/18 20:00 99.0 82 18 118/73 (88) 97 Intake and Output 09/28/18 09/29/18 18:59 06:59 Intake Total 1050 ml 720 ml Balance 1050 ml 720 ml Intake Oral 1000 ml 520 ml IV Total 50 ml 200 ml # Voids 2 Laboratory Tests 09/28/18 20:05: White Blood Count 9.9, Red Blood Count 4.45, Hemoglobin 10.0#L, Hematocrit 31.9# L, Mean Corpuscular Volume 72#L, Mean Corpuscular Hemoglobin 22.5L, Mean Corpuscular Hemoglobin Concent 31.4L, Red Cell Distribution Width 21.4H, Platelet Count 335, Mean Platelet Volume 5.8L, Neutrophils (%) (Auto) 74.4, Lymphocytes (%) (Auto) 15.7L, Monocytes (%) (Auto) 8.8, Eosinophils (%) (Auto) 0.6, Basophils (%) (Auto) 0.5 09/29/18 06:30: White Blood Count 9.2, Red Blood Count 4.28, Hemoglobin 9.9L, Hematocrit 30.8L, Mean Corpuscular Volume 72L, Mean Corpuscular Hemoglobin 23.1L, Mean Corpuscular Hemoglobin Concent 32.0, Red Cell Distribution Width 21.2H, Platelet Count 329, Mean Platelet Volume 5.8L, Neutrophils (%) (Auto) 80.6H, Lymphocytes (%) (Auto) 12.4L, Monocytes (%) (Auto) 5.1, Eosinophils (%) (Auto) 0.9, Basophils (%) (Auto) 0.9, Sodium Level 138, Potassium Level 3.2L, Chloride Level 101, Carbon Dioxide Level 28, Anion Gap 9, Blood Urea Nitrogen 6L, Creatinine 0.5L, Estimat Glomerular Filtration Rate > 60, Glucose Level 88, Calcium Level 8.6 Height (Feet): 4 Height (Inches): 11.00 Weight (Pounds): 92 General Appearance: no apparent distress Cardiovascular: normal rate Respiratory/Chest: lungs clear Abdomen: non tender Chele Tijerina MD Sep 29, 2018 16:24
--- NOTE | 2018-09-29 18:03 | NUR ---
Pt dc'd at 1800 in stable condition accompanied by family member. Pt provided discharge paperwork and instructions. Pt educated on how to shower with ceram wrap and, perform dressing change if dressing becomes soiled, pt verbalized understanding. Pt taken to first floor via wheelchair. IV to right hand dc'd, no bleeding noted applied pressure.
--- NOTE | 2018-09-30 13:30 | Discharge Summary ---
Discharge Summary Discharge Summary _ DATE OF ADMISSION: 09/26/2018 DATE OF DISCHARGE: 09/29/2018 DISCHARGED BY: Dr. Bebo Patel CO-SURGEON: Dr. Pepe Sanz CASE FILLER: Dr. Chele Tijerina BRIEF HOSPITAL COURSE: Patient is a 42-year-old female, with symptomatic fibroids of the uterus and heavy menstrual bleeding was admitted on 09/26/2018 and underwent resection of the adenomyoma and lysis of adhesions. She had a previous uterine artery embolization. During surgery, patient was noted to have significant adhesions of the small bowel to the uterus and fibroid requiring adhesiolysis and lysis of adhesions. Dr. Sanz from general surgery was called to assist with the procedure of adhesiolysis. Patient tolerated myomectomy well. Postoperatively she was admitted for postop care and was followed by Dr. Tijerina. She was noted to be anemic possibly postop anemia and from heavy menstrual bleeding. She initially refused blood transfusion. She was given IV iron. She continued to be anemic and had low-grade fever and leukocytosis. She eventually agreed to blood transfusion and was given 2 units packed RBC blood transfusion. She was started on Zosyn. Leukocytosis resolved patient defervesced. Hemoglobin level posttransfusion was stable. Given potassium replacement. She was tolerating diet well and was passing flatus and voiding well. She was eventually discharged home. 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 DISCHARGE MEDICATIONS: Refer to Discharge Medication List. DISCHARGE INSTRUCTIONS: Follow-up in a week. I have been assigned to dictate discharge summary on this account, and I was not involved in the patient's management. Katlyn Elliott NP Sep 30, 2018 13:30
== END 2018-09-29 18:05 | disposition home or self-care (01) | DRG 742 ==
LOC: SDSOVERFLO 05:13 → 3E 13:07
PROC: 0UB90ZZ Excision of Uterus, Open Approach (ICD-10-PCS; principal; 2018-09-26 07:30)
PROC: 0DN80ZZ Release Small Intestine, Open Approach (ICD-10-PCS; principal; 2018-09-26 07:30)
PROC: 30233N1 Transfusion of Nonautologous Red Blood Cells into Peripheral Vein, Percutaneous Approach (ICD-10-PCS; 2018-09-28)
DX: D26.1 Other benign neoplasm of corpus uteri (principal); E46 Unspecified protein-calorie malnutrition; K66.0 Peritoneal adhesions (postprocedural) (postinfection); D50.0 Iron deficiency anemia secondary to blood loss (chronic)
CPT/HCPCS: 36415; 80048; 80053; 81025; 84439; 84443; 85007; 85025; 86850; 86900; 86901; 86920; 87070; 87075; 87081; 87205; 94003; 94150; J2250; J2405; J2710; J2765; J8499